=== PATIENT | male | born 1935 ===

== ENCOUNTER 2017-02-25 20:15 | Emergency (ER) | payer MEDICARE ==
[2017-02-25 20:48] LABS: #Basophils 0.1 thou/uL (0.0-0.2); #Eosinphils 0.1 thou/uL (0.0-0.7); #Lymphocytes 2.2 thou/uL (1.20-3.40); #Monocytes 0.7 thou/uL (0.11-0.59); #Neutrophils 4.4 thou/uL (1.40-6.50); %Basophils 1.2 % (0.0-1.0); %Eosinophils 1.9 % (0.0-10.0); %Lymphocytes 29.3 % (21.0-51.0); %Monocytes 9.2 % (0.0-10.0); Hematocrit 42.4 % (42.0-52.0); Red Blood Cell (RBC) Count 4.64 mill/uL (4.70-6.10); White Blood Cell (WBC) Count 7.5 thou/uL (4.8-10.8)
[2017-02-25] MEDS ORDERED: Ondansetron HCl/PF 4 MG/2 ML Vial ONE (21:02)
[2017-02-25 21:10] LABS: ALT (SGPT) 19 U/L (8-55); AST (SGOT) 21 U/L (5-34); Alkaline Phosphatase 80 U/L (40-150); Anion Gap 12 mmol/L (10-20); BUN (Urea Nitrogen) 15 mg/dL (8.4-25.7); Bilirubin, Total 0.8 mg/dL (0.2-1.2); CK (CPK) 44 U/L (30-200); Calc. Creatinine Clearance 0 mL/min (70-130); Calcium 9.5 mg/dL (7.8-10.44); Carbon Dioxide 29 mmol/L (23-31); Chloride 99 mmol/L (98-107); Estimated GFR-MDRD 75; Globulin 2.9 g/dL (2.4-3.5); Protein, Total 7.1 g/dL (5.8-8.1)
[2017-02-25 21:13] LABS: Troponin I Less than 0.010 ng/mL (< 0.028)
[2017-02-25] MEDS ORDERED: Potassium Chloride 20 MEQ TAB ONE (21:33)
--- NOTE | 2017-02-25 22:00 | CT ---
CT BRAIN WITHOUT CONTRAST: Indication: History of syncope and collapse. Comparison: None. FINDINGS: No definite acute infarct, hemorrhage, or hydrocephalus is evident. There is generalized cerebral and cerebellar atrophy. 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 Extracranial soft tissues appear wit hin normal limits. Small amount of mucosal thickening is seen in the right maxillary sinus. IMPRESSION: No acute intracranial abnormality. POS: [facility]
== END 2017-02-25 22:40 | disposition home or self-care (01) ==
LOC: ERS 20:15
DX: E87.6 Hypokalemia (principal); E86.9 Volume depletion, unspecified; I10 Essential (primary) hypertension; Z79.82 Long term (current) use of aspirin; Z79.899 Other long term (current) drug therapy
CPT/HCPCS: 36415; 70450; 80053; 82553; 84484; 85025; 93005; 96361; 96374; J2405